=== PATIENT | female | born 1980 | race American Indian/Alaskan Native ===

== ENCOUNTER 2019-05-09 17:38 | Emergency (ER) | payer OTHER ==
--- NOTE | 2019-05-09 17:56 | Emergency Department Report ---
Blank Doc - Documentation Documentation: This is a 39-year-old female that presents with generalized weakness, increased urination, and blurry vision. HX of diabetes but denies taking medications. This initial assessment/diagnostic orders/clinical plan/treatment(s) is/are subject to change based on patient's health status, clinical progression and re- assessment by fellow clinical providers in the ED. Further treatment and workup at subsequent clinical providers discretion. Patient/guardians urged not to elope from the ED as their condition may be serious if not clinically assessed and managed. Initial orders include: 1- Patient sent to MAIN ED for further evaluation and treatment 2- labs 3- UA
[2019-05-09 18:35] LABS: Bilirubin,Urine NEG (Negative); Blood,Urine NEG (Negative); Color,Urine Straw (Yellow); Mucus,Urine FEW /HPF; Protein,Urine <15 mg/dL mg/dL (Negative); Urobilinogen,Urine < 2.0 mg/dL (<2.0)
[2019-05-09 19:13] LABS: Basophils % (Auto) 0.6 % (0.0-1.8); Hematocrit 39.4 % (30.3-42.9); Hemoglobin 13.1 gm/dl (10.1-14.3); Lymphocytes # (Auto) 2.9 K/mm3 (1.2-5.4); Lymphocytes % (Auto) 52.7 % (13.4-35.0); Mean Corpuscular HGB Conc 33 % (30-34); Mean Corpuscular Volume 76 fl (79-97); Monocytes # (Auto) 0.3 K/mm3 (0.0-0.8); Monocytes % (Auto) 5.8 % (0.0-7.3); Platelet Count 281 K/mm3 (140-440); Red Blood Count 5.17 M/mm3 (3.65-5.03); Red Cell Distribution Width 14.6 % (13.2-15.2)
[2019-05-09 19:37] LABS: Alanine Aminotransferase 39 units/L (7-56); Albumin 4.1 g/dL (3.9-5); BUN/Creatinine Ratio 16; Blood Urea Nitrogen 8 mg/dL (7-17); Calcium 9.2 mg/dL (8.4-10.2); Hemolysis Index 11
--- NOTE | 2019-05-09 20:11 | Emergency Department Report ---
ED General Adult HPI - General Chief complaint: Hyperglycemia Stated complaint: HIGH GLUCOSE/YEAST INF/RT ANKLE INJ Time Seen by Provider: 05/09/19 17:55 Source: patient, RN notes reviewed Mode of arrival: Ambulatory Limitations: No Limitations - History of Present Illness Initial comments: This is a 39-year-old female. The patient is not known to this provider previously. Patient has reportedly been a type II diabetic since the age of 19, and is reportedly insulin-dependent. Also endorses a history of asthma. She has not seen a primary care doctor since August. She reports she is supposed to be taking Humulin insulin, 70/30, on a sliding scale. She reports that she picks this medication up from [email or web address], takes it intermittently, but is not following up with the primary care doctor for titration and adjustment. She presents to the emergency room with a complaint of painless binocular blurry vision, present for 6 months, numbness in her upper extremity fingertips, present for months, increased thirst and increased urination, and vaginal discomfort. Patient makes no endorsement of left ankle pain to this provider previously. Her symptoms are intermittent, does not radiate anywhere, painless, with the exception of vaginal burning, vaginal itching, did not radiate anywhere. The patient denies headache, neck pain, chest pain, abdominal pain, shortness of breath. She has a gynecologic discomfort, and itching. She has no extremity weakness -: Gradual, month(s) Location: genitals, left, right, upper extremity Radiation: non-radiation Quality: other Consistency: other Improves with: other Worsens with: other - Related Data Previous Rx's Medication Instructions Recorded Last Taken Type Nystatin/Triamcin 30 gm TP BID #1 cream..g. 05/09/19 Unknown Rx [Nystatin-Triamcinolone Cream] Allergies Allergy/AdvReac Type Severity Reaction Status Date / Time No Known Allergies Allergy Unverified 05/09/19 17:44 ED Review of Systems ROS: Stated complaint: HIGH GLUCOSE/YEAST INF/RT ANKLE INJ Other details as noted in HPI Constitutional: denies: fever Eyes: other (binocular blurry vision, although no formal visual changes that she is aware of). denies: eye pain, eye discharge ENT: denies: congestion Respiratory: denies: cough Cardiovascular: denies: syncope Gastrointestinal: denies: abdominal pain Genitourinary: discharge Musculoskeletal: myalgia Skin: rash, lesions Neurological: numbness. denies: confusion ED Past Medical Hx - Past Medical History Previous Medical History?: Yes Hx Diabetes: Yes - Surgical History Past Surgical History?: No - Social History Smoking Status: Never Smoker Substance Use Type: None - Medications Home Medications: Home Medications Medication Instructions Recorded Confirmed Last Taken Type Nystatin/Triamcin 30 gm TP BID #1 cream..g. 05/09/19 Unknown Rx [Nystatin-Triamcinolone Cream] ED Physical Exam - General Limitations: No Limitations General appearance: alert, in no apparent distress, obese - Head Head exam: Present: atraumatic, normocephalic - Eye Eye exam: Present: normal appearance, EOMI, other (visual acuity intact to finger counting, color perception, reading at a close distance). Absent: n ystagmus - ENT ENT exam: Present: normal exam, normal orophraynx, mucous membranes moist, normal external ear exam - Neck Neck exam: Present: normal inspection, full ROM. Absent: tenderness, meningismus - Respiratory Respiratory exam: Present: normal lung sounds bilaterally. Absent: respiratory distress - Cardiovascular Cardiovascular Exam: Present: regular rate, normal rhythm, normal heart sounds. Absent: bradycardia, tachycardia, irregular rhythm, systolic murmur, diastolic murmur, rubs, gallop - GI/Abdominal GI/Abdominal exam: Present: soft. Absent: distended, tenderness, guarding, rebound, rigid, pulsatile mass - External exam: Present: normal external exam, other (skin breakdown noted in the intertriginous lesion on the left thigh, between the labia majora, and the medial aspect of the left thigh. On the right external labial crease, hyperpi gmented lesions noted, with no vesicles noted.) Speculum exam: Present: vaginal discharge, other (chaperoned by nurse TONI MACK). Absent: cervical discharge, vaginal bleeding - Extremities Exam Extremities exam: Present: normal inspection, full ROM, other (2+ pulses noted in the bilateral upper, lower extremities. Compartments soft. No long bony tenderness. The pelvis is stable.). Absent: pedal edema, joint swelling, calf tenderness - Back Exam Back exam: Present: normal inspection, full ROM. Absent: tenderness, CVA tenderness (R), CVA tenderness (L), paraspinal tenderness, vertebral tenderness - Neurological Exam Neurological exam: Present: alert, oriented X3, normal gait, other (Extraocular movements intact. Tongue midline. No facial droop. Facial sensation intact to light touch in the V1, V2, V3 distribution bilaterally. 5 and 5 strength in 4 extremities.. Sensation is intact to light touch in 4 extremities.). Absent: motor sensory deficit - Psychiatric Psychiatric exam: Present: normal affect, normal mood - Skin Skin exam: Present: warm ED Course Vital Signs 05/09/19 17:55 Temperature 98.5 F Pulse Rate 82 Respiratory 20 Rate Blood Pressure 122/79 O2 Sat by Pulse 98 Oximetry ED Medical Decision Making - Lab Data Result diagrams: 05/09/19 18:48 05/09/19 18:48 Vital Signs 05/09/19 17:55 Temperature 98.5 F Pulse Rate 82 Respiratory 20 Rate Blood Pressure 122/79 O2 Sat by Pulse 98 Oximetry Lab Results 05/09/19 05/09/19 05/09/19 Range/Units 18:03 18:07 18:07 WBC (4.5-11.0) K/mm3 RBC (3.65-5.03) M/mm3 Hgb (10.1-14.3) gm/dl Hct (30.3-42.9) % MCV (79-97) fl MCH (28-32) pg MCHC (30-34) % RDW (13.2-15.2) % Plt Count (140-440) K/mm3 Lymph % (Auto) (13.4-35.0) % Humphreys % (Auto) (0.0-7.3) % Eos % (Auto) (0.0-4.3) % Baso % (Auto) (0.0-1.8) % Lymph # (1.2-5.4) K/mm3 Humphreys # (0.0-0.8) K/mm3 Eos # (0.0-0.4) K/mm3 Baso # (0.0-0.1) K/mm3 Seg Neutrophils % (40.0-70.0) % Seg Neutrophils # (1.8-7.7) K/mm3 VBG pH (7.320-7.420) Sodium (137-145) mmol/L Potassium (3.6-5.0) mmol/L Chloride (98-107) mmol/L Carbon Dioxide (22-30) mmol/L Anion Gap mmol/L BUN (7-17) mg/dL Creatinine (0.7-1.2) mg/dL Estimated GFR ml/min BUN/Creatinine Ratio % Glucose (65-100) mg/dL POC Glucose 356 H (70-105) Calcium (8.4-10.2) mg/dL Total Bilirubin (0.1-1.2) mg/dL AST (5-40) units/L ALT (7-56) units/L Alkaline Phosphatase (35-129) units/L Total Protein (6.3-8.2) g/dL Albumin (3.9-5) g/dL Albumin/Globulin Ratio % Urine Color Straw (Yellow) Urine Turbidity Clear (Clear) Urine pH 5.0 (5.0-7.0) Ur Specific Brook 1.031 H (1.003-1.030) Urine Protein <15 mg/dl (Negative) mg/dL Urine Glucose (UA) >=500 (Negative) mg/dL Urine Ketones Neg (Negative) mg/dL Urine Blood Neg (Negative) Urine Nitrite Neg (Negative) Urine Bilirubin Neg (Negative) Urine Urobilinogen < 2.0 (<2.0) mg/dL Ur Leukocyte Esterase Neg (Negative) Urine WBC (Auto) 2.0 (0.0-6.0) /HPF Urine RBC (Auto) 4.0 (0.0-6.0) /HPF U Epithel Cells (Auto) 6.0 (0-13.0) /HPF Urine Mucus Few /HPF Urine HCG, Qual Negative (Negative) 05/09/19 05/09/19 05/09/19 Range/Units 18:48 18:48 18:48 WBC 5.4 (4.5-11.0) K/mm3 RBC 5.17 H (3.65-5.03) M/mm3 Hgb 13.1 (10.1-14.3) gm/dl Hct 39.4 (30.3-42.9) % MCV 76 L (79-97) fl MCH 25 L (28-32) pg MCHC 33 (30-34) % RDW 14.6 (13.2-15.2) % Plt Count 281 (140-440) K/mm3 Lymph % (Auto) 52.7 H (13.4-35.0) % Humphreys % (Auto) 5.8 (0.0-7.3) % Eos % (Auto) 0.0 (0.0-4.3) % Baso % (Auto) 0.6 (0.0-1.8) % Lymph # 2.9 (1.2-5.4) K/mm3 Humphreys # 0.3 (0.0-0.8) K/mm3 Eos # 0.0 (0.0-0.4) K/mm3 Baso # 0.0 (0.0-0.1) K/mm3 Seg Neutrophils % 40.9 (40.0-70.0) % Seg Neutrophils # 2.2 (1.8-7.7) K/mm3 VBG pH 7.348 (7.320-7.420) Sodium 134 L (137-145) mmol/L Potassium 4.0 (3.6-5.0) mmol/L Chloride 94.1 L (98-107) mmol/L Carbon Dioxide 25 (22-30) mmol/L Anion Gap 19 mmol/L BUN 8 (7-17) mg/dL Creatinine 0.5 L (0.7-1.2) mg/dL Estimated GFR > 60 ml/min BUN/Creatinine Ratio 16 % Glucose 357 H (65-100) mg/dL POC Glucose (70-105) Calcium 9.2 (8.4-10.2) mg/dL Total Bilirubin 0.40 (0.1-1.2) mg/dL AST 29 (5-40) units/L ALT 39 (7-56) units/L Alkaline Phosphatase 111 (35-129) units/L Total Protein 7.6 (6.3-8.2) g/dL Albumin 4.1 (3.9-5) g/dL Albumin/Globulin Ratio 1.2 % Urine Color (Yellow) Urine Turbidity (Clear) Urine pH (5.0-7.0) Ur Specific Brook (1.003-1.030) Urine Protein (Negative) mg/dL Urine Glucose (UA) (Negative) mg/dL Urine Ketones (Negative) mg/dL Urine Blood (Negative) Urine Nitrite (Negative) Urine Bilirubin (Negative) Urine Urobilinogen (<2.0) mg/dL Ur Leukocyte Esterase (Negative) Urine WBC (Auto) (0.0-6.0) /HPF Urine RBC (Auto) (0.0-6.0) /HPF U Epithel Cells (Auto) (0-13.0) /HPF Urine Mucus /HPF Urine HCG, Qual (Negative) 05/09/19 Range/Units 19:57 WBC (4.5-11.0) K/mm3 RBC (3.65-5.03) M/mm3 Hgb (10.1-14.3) gm/dl Hct (30.3-42.9) % MCV (79-97) fl MCH (28-32) pg MCHC (30-34) % RDW (13.2-15.2) % Plt Count (140-440) K/mm3 Lymph % (Auto) (13.4-35.0) % Humphreys % (Auto) (0.0-7.3) % Eos % (Auto) (0.0-4.3) % Baso % (Auto) (0.0-1.8) % Lymph # (1.2-5.4) K/mm3 Humphreys # (0.0-0.8) K/mm3 Eos # (0.0-0.4) K/mm3 Baso # (0.0-0.1) K/mm3 Seg Neutrophils % (40.0-70.0) % Seg Neutrophils # (1.8-7.7) K/mm3 VBG pH (7.320-7.420) Sodium (137-145) mmol/L Potassium (3.6-5.0) mmol/L Chloride (98-107) mmol/L Carbon Dioxide (22-30) mmol/L Anion Gap mmol/L BUN (7-17) mg/dL Creatinine (0.7-1.2) mg/dL Estimated GFR ml/min BUN/Creatinine Ratio % Glucose (65-100) mg/dL POC Glucose 351 H (70-105) Calcium (8.4-10.2) mg/dL Total Bilirubin (0.1-1.2) mg/dL AST (5-40) units/L ALT (7-56) units/L Alkaline Phosphatase (35-129) units/L Total Protein (6.3-8.2) g/dL Albumin (3.9-5) g/dL Albumin/Globulin Ratio % Urine Color (Yellow) Urine Turbidity (Clear) Urine pH (5.0-7.0) Ur Specific Brook (1.003-1.030) Urine Protein (Negative) mg/dL Urine Glucose (UA) (Negative) mg/dL Urine Ketones (Negative) mg/dL Urine Blood (Negative) Urine Nitrite (Negative) Urine Bilirubin (Negative) Urine Urobilinogen (<2.0) mg/dL Ur Leukocyte Esterase (Negative) Urine WBC (Auto) (0.0-6.0) /HPF Urine RBC (Auto) (0.0-6.0) /HPF U Epithel Cells (Auto) (0-13.0) /HPF Urine Mucus /HPF Urine HCG, Qual (Negative) - Medical Decision Making Differential diagnosis, including not limited to: Hyperglycemia, medication noncompliance, yeast infection, skin breakdown secondary to excess adiposity Assessment and plan: 39-year-old female with evidence of hyperglycemia, manifest by blood glucose of greater than 350, without evidence of anion gap acidosis. Patient does not meet criteria for hospitalization. She will be treated with subcutaneous insulin and Diflucan. I strongly encouraged the patient to participate in diet and lifestyle modification, and we discussed the benefits of proper diet, diabetic family diet, weight loss, and physical activity. Patient also educated on appropriate aspects of external genital hygiene, and the need to appropriately cleanse intertriginous areas. I counseled the patient to follow up with outpatient primary care doctor for adjustment titration of her insulin, return precautions were reviewed. Patient does not appear to have an emergent medical condition at this time which requires hospitalization. Critical care attestation.: If time is entered above; I have spent that time in minutes in the direct care of this critically ill patient, excluding procedure time. ED Disposition Clinical Impression: Hyperglycemia, Itching in the vaginal area Disposition: DC-01 TO HOME OR SELFCARE Is pt being admited?: No Does the pt Need Aspirin: No Condition: Stable Instructions: Meal Planning with Diabetes Exchanges (DC) Additional Instructions: Cultures were sent today, and results will be available in the next 3-5 days. Please have your primary care doctor contact the medical records department to obtain culture results. Please follow-up with the primary care doctor within the next 3-4 weeks to have insulin medication evaluated, adjusted, and changed, if necessary. Please make certain to wash external genitals with gentle soap and water every 12-24 hours, and make sure to wear loosefitting clothing, and attempts to avoid excessive skin rubbing. I recommend aggressive weight loss, exercise and physical activity as tolerated, and a diet that is in adherence with the [employer] recomme ndations for diabetic diet. These recommendations can be referenced online. Long-term complications of hyperglycemia, poor control diabetes, and obesity may increase lifetime risk of heart attack, stroke, disability, loss of quality of life. Use the medication as directed. Avoid intravaginal application. Please return to the emergency room right away with new, worse or different symptoms, or symptoms not present on initial emergency room evaluation. Prescriptions: Nystatin/Triamcin [Nystatin-Triamcinolone Cream] 30 gm TP BID #1 cream..g. Referrals: ISMA HOWARDDANESE MD BRGIITTE [Primary Care Provider] - 3-5 Days [facility] [Provider Group] - 3-5 Days [facility] [Provider Group] - 3-5 Days [facility] [Provider Group] - 3-5 Days [facility] [Provider Group[facility] - 3-5 Days [facility] [Provider Group] - 3-5 Days
[2019-05-09] MEDS ORDERED: HumuLIN R SUB-Q ONE (20:25)
[2019-05-09 20:43] LABS: HCG Qualitative,Urine Negative (Negative)
[2019-05-09 21:26] VITALS: BP 129/85
== END 2019-05-09 21:27 | disposition home or self-care (01) ==
LOC: ED 17:38
DX: E11.65 Type 2 diabetes mellitus with hyperglycemia (principal); Z79.899 Other long term (current) drug therapy
CPT/HCPCS: 36415; 80053; 81001; 81025; 82805; 82962; 85025; 87210; 87591; 96372; 99284; J1815